=== PATIENT | female | born 1965 | race Two or more races ===

== ENCOUNTER 2017-07-29 22:29 | Inpatient (IN) | payer OTHER ==
[~2017-07-29] VITALS: Ht 167.6 cm; Wt 64.4 kg
--- NOTE | 2017-07-29 22:32 | NUR ---
PT MARIYA FROM HOME TO ER BED 02. PT STATES HAD FELT LIKE SHE IS GOING TO FAINT WHILE TRYING TO GO TO THE BATHROOM AT AROUND 2130. HAD A NASAL POLYP REMOVAL THE DAY BEFORE. 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 GOWNED AND PLACED ON MONITOR. AWAITING MD ZAVALETA.
--- NOTE | 2017-07-29 22:39 | NUR ---
DR MEDEIROS AT BEDSIDE FOR EVAL.
--- NOTE | 2017-07-29 22:45 | NUR ---
DIRECTOR DANCE AT BEDSIDE FOR BLOOD DRAW.
[2017-07-29] MEDS ORDERED: ONDANSETRON HCL/PF 4 MG/2 ML VIAL IV ONE (23:00)
[2017-07-29] MEDS ORDERED: IV NS 0.9% 1,000 ML BAG IV ONE (23:00)
[2017-07-29 23:08] LABS: BASOPHILS % (AUTO) 0.3 % (0.0-2.0); EOSINOPHILS # (AUTO) 0.2 /CMM (0.0-0.7); HEMATOCRIT 23 % (33-45); HEMOGLOBIN 7.7 g/dL (11.5-14.8); LYMPHOCYTES # (AUTO) 0.8 /CMM (0.8-4.8); LYMPHOCYTES % (AUTO) 6.7 % (20.0-44.0); MEAN CORPUSCULAR HEMOGLOBIN 27 PG (26.0-33.0); MEAN CORPUSCULAR HGB CONC 33 g/dl (31.0-36.0); MEAN CORPUSCULAR VOLUME 82 fL (82-100); MONOCYTES # (AUTO) 0.5 /CMM (0.1-1.30); MONOCYTES % (AUTO) 4.5 % (2.0-12.0); NEUTROPHILS # (AUTO) 10.1 /CMM (1.8-8.9); NEUTROPHILS % (AUTO) 86.5 % (43.0-81.0); PLATELET COUNT (AUTO) 170 /CMM (150-450); RDW COEFFICIENT OF VARIATION 13.1 (11.5-15.0); RED BLOOD CELL COUNT(AUTO) 2.81 MIL/uL (4.0-5.2); WHITE BLOOD COUNT (AUTO) 11.7 K/uL (4.3-11.0)
[2017-07-29 23:20] LABS: CALCIUM, SERUM 7.8 mg/dL (8.5-10.1); CARBON DIOXIDE 23 mmol/L (21-32); CHLORIDE 109 mmol/L (98-107); CREATININE 0.7 mg/dL (0.6-1.3); GLUCOSE 98 mg/dL (74-106); POTASSIUM 3.7 mmol/L (3.5-5.1); SODIUM SERUM 143 mmol/L (136-145); UREA NITROGEN, BLOOD 15 mg/dL (7-18)
[2017-07-29 23:26] LABS: ALANINE AMINOTRANSFERASE 18 U/L (12-78); ALBUMIN 3.2 g/dL (3.4-5.0); ALKALINE PHOSPHATASE 45 U/L (46-116); ASPARTATE AMINOTRANSFERASE 10 U/L (15-37); BILIRUBIN,DIRECT 0.1 mg/dL (0.0-0.2); BILIRUBIN,TOTAL 0.2 mg/dL (0.2-1.0); TOTAL PROTEIN, SERUM 5.8 g/dL (6.4-8.2)
[2017-07-29 23:27] LABS: TROPONIN I < 0.017 ng/mL (0.00-0.056)
--- NOTE | 2017-07-30 00:34 | NUR ---
REPORT GIVEN TO KEVYN/RN ON BEHALF OF PRIMARY NURSE FLAVIO.
[2017-07-30 01:00] VITALS: BP 101/48
[2017-07-30] MEDS ORDERED: IV NS 0.9% 1,000 ML IV PRN (01:00)
[2017-07-30] MEDS ORDERED: HYDROCODONE/APAP 5/325MG 1 EACH TABLET PO PRN (01:00)
[2017-07-30] MEDS ORDERED: ACETAMINOPHEN 325 MG TABLET PO PRN (01:00)
[2017-07-30] MEDS ORDERED: MAGNESIUM HYDROXIDE 30 ML UDC PO PRN (01:00)
[2017-07-30] MEDS ORDERED: ONDANSETRON HCL/PF 4 MG/2 ML VIAL IVP PRN (01:00)
[2017-07-30] MEDS ORDERED: ZOLPIDEM TARTRATE 5 MG TABLET PO PRN (01:00)
[2017-07-30] MEDS ORDERED: Z GUARD REMEDY 2 OZ OINT TP PRN (01:00)
--- NOTE | 2017-07-30 01:00 | NUR ---
[facility] MACHINE OPERATORMARKETING SUPPORT SPECIALIST NOTES ADMITTED 52 YO FEMALE PT ALERT, AWAKE, VERBALLY RESPONSIVE,ON ROOM AIR, RESPIRATIONS EVEN, UNLABORED, NO APPARENT DISTRESS NOTED. DENIES ANY PAIN OR DISCOMFORT AT THIS TIME. IV SITE RT HAND INTACT, PATENT. S/P NASAL POLYP REMOVAL ON 07/28/17. PT STATED SHE HAS PACKING AT THE NOSTRIL. CALL LIGHT WITHIN REACH. BED LOCKED IN LOWEST POSITION. ATTENDED ALL NEEDS. WILL CONTINUE TO MONIUTOR ACCORDINGLY.
[2017-07-30 04:00] VITALS: BP 101/45
--- NOTE | 2017-07-30 07:30 | NUR ---
PSYCH TECH CLOSING NOTES PT IN BED, RESTING COMFORTABLY, ON ROOM AIR, RESPIRATIONS EVEN UNLABORED. DENIES ANY PAIN OR DISCOMFORT AT THIS TIME. WILL CONTINUE TO MONITOR ACCORDINGLY.
--- NOTE | 2017-07-30 07:45 | NUR ---
RN MDS OPENING NOTE PATIENT IS ALERT AND ORIENTED x4. NO PAIN AT THIS TIME. NO SOB OR DISTRESS NOTED. CALL LIGHT WITHIN REACH. SAFETY MEASURES IMPLEMENTED. ABLE TO COMMUNICATE NEEDS. IV INTACT AND PATENT NO REDNESS OR SWELLING NOTED, IV FLUIDS RUNNING AT THIS TIME TOLERATING WELL. ON ROOM AIR. WILL CONTINUE TO MONITOR THROUGHOUT SHIFT
[2017-07-30 08:00] VITALS: BP 85/42
[2017-07-30] MEDS ORDERED: POTASSIUM CHLORIDE 20 MEQ TAB.PRT.SR PO SCH (08:00)
[2017-07-30] MEDS: IV D5/ 0.9% NACL 1,000 ML IV PRN ×2 (08:15→18:36)
[2017-07-30] MEDS ORDERED: ALBU8.5H8 IH (08:40)
[2017-07-30] MEDS ORDERED: SULF1TAB3 PO (08:40)
[2017-07-30] MEDS ORDERED: CLIN150C15 PO (08:40)
[2017-07-30] MEDS ORDERED: ALBU2.5V38 IH (08:40)
[2017-07-30] MEDS ORDERED: MONT10TA22 PO (08:40)
[2017-07-30] MEDS ORDERED: FLUT1BLS IH (08:40)
--- NOTE | 2017-07-30 09:00 | NUR ---
MS RN NOTE INFORMED MD ABOUT PATIENT'S HGB: 7.1 NO NEW ORDERS FOR BLOOD AT THIS TIME. ORDER TO COLLECT OB STOOL. WILL MONITOR FOR BLEEDING THROUGHOUT SHIFT
[2017-07-30 09:17] LABS: BASOPHILS % (AUTO) 0.4 % (0.0-2.0); EOSINOPHILS # (AUTO) 0.6 /CMM (0.0-0.7); EOSINOPHILS % (AUTO) 6.2 % (0.0-6.0); HEMATOCRIT 21 % (33-45); HEMOGLOBIN 7.1 g/dL (11.5-14.8); LYMPHOCYTES # (AUTO) 1.4 /CMM (0.8-4.8); LYMPHOCYTES % (AUTO) 13.4 % (20.0-44.0); MEAN CORPUSCULAR HEMOGLOBIN 28 PG (26.0-33.0); MEAN CORPUSCULAR HGB CONC 34 g/dl (31.0-36.0); MEAN CORPUSCULAR VOLUME 82 fL (82-100); MONOCYTES # (AUTO) 0.5 /CMM (0.1-1.30); MONOCYTES % (AUTO) 4.5 % (2.0-12.0); NEUTROPHILS # (AUTO) 7.7 /CMM (1.8-8.9); NEUTROPHILS % (AUTO) 75.5 % (43.0-81.0); PLATELET COUNT (AUTO) 167 /CMM (150-450); RDW COEFFICIENT OF VARIATION 13.2 (11.5-15.0); RED BLOOD CELL COUNT(AUTO) 2.58 MIL/uL (4.0-5.2); WHITE BLOOD COUNT (AUTO) 10.2 K/uL (4.3-11.0)
[2017-07-30 09:32] LABS: CALCIUM, SERUM 7.8 mg/dL (8.5-10.1); CREATININE 0.6 mg/dL (0.6-1.3); POTASSIUM 3.7 mmol/L (3.5-5.1)
[2017-07-30 09:37] LABS: MAGNESIUM 1.7 mg/dL (1.8-2.4); PHOSPHORUS 2.7 mg/dL (2.5-4.9)
[2017-07-30 09:50] LABS: THYROID STIMULATING HORMONE 0.916 uIU/mL (0.358-3.74)
[2017-07-30] MEDS: Magnesium 1GM/D5W 100ML PREMIX 100 ML IV SCH ×2 (11:40→14:24)
[2017-07-30] MEDS: SOD FERRIC GLUC 125 MG in IV NS 0.9% 100 ML IV SCH (14:23)
[2017-07-30 16:00] VITALS: BP 100/55
--- NOTE | 2017-07-30 18:47 | NUR ---
MS RN CLOSING NOTE PATIENT RESTING COMFORTABLY AT THIS TIME. NO PAIN AT THIS TIME. NO SOB OR DISTRESS NOTED. CALL LIGHT WITHIN REACH AT ALL TIMES. SAFETY MEASURES IMPLEMENTED. ABLE TO COMMUNICATE NEEDS. ALL DUE MEDICATIONS GIVEN ORDERED. ALL NURSING CARE NEEDS ATTENDED TO. IV INTACT AND PATENT NO REDNESS OR SWELLING NOTED. STOOL SAMPLE TO BE COLLECTED FOR OB STOOL. WILL ENDORSE TO DIRECTOR DRUG NURSE
[2017-07-30 20:00] VITALS: BP 98/54
--- NOTE | 2017-07-30 22:27 | NUR ---
A/A /O times 4 pleasant and coopertive ,no distress noted or voiced
--- NOTE | 2017-07-30 22:45 | NUR ---
MS PRAMOD NOTES PT HAS BEEN REASSIGNED, RECEIVED REPORT FROM PRAMOD PRIETO FOR CONTINUITY OF CARE. A/O X4, AWAKE AND RESPONSIVE. REMAINS AFEBRILE. RESPIRATIONS ARE EVEN AND UNLABORED, NOT IN ANY ACUTE DISTRESS NOTED. DENIES ANY SOB, CHEST PAIN, N/V. IV TO R HAND INTACT, NO INFILTRATION NOTED. DRESSING KEPT CLEAN AND DRY. PT IS AMBULATORY WITH NO DIFFICULTIES AND ABLE TO REPOSITION SELF IN BED. SAFETY MEASURES ARE IN PLACE. BED IS IN ITS LOW AND LOCKED POSITION. WILL ENDORSE TO NEXT SHIFT FOR CONTINUITY OF CARE.
--- NOTE | 2017-07-31 06:17 | NUR ---
MS RN CLOSING NOTES ALL NEEDS MET AND RENDERED. AWAKE, ALERT AND RESPONSIVE. REMAINS AFEBRILE. RESPIRATIONS ARE EVEN AND UNLABORED, NOT IN ANY ACUTE DISTRESS NOTED. DENIES ANY PAIN AT THIS TIME. IV TO RIGHT HAND INTACT, DRESSING KEPT CLEAN AND DRY. NO INFILTRATION NOTED. SAFETY MEASURES ARE IN PLACE. INSTRUCTED PT TO USE CALL LIGHT WHEN ASSISTANCE IS NEEDED, CALL LIGHT IS LEFT WITHIN REACH. WILL ENDORSE TO NEXT SHIFT FOR CONTINUITY OF CARE.
[2017-07-31 08:00] VITALS: BP 98/56
[2017-07-31 08:07] LABS: BASOPHILS % (AUTO) 0.4 % (0.0-2.0); EOSINOPHILS # (AUTO) 0.4 /CMM (0.0-0.7); HEMATOCRIT 22 % (33-45); HEMOGLOBIN 7.3 g/dL (11.5-14.8); LYMPHOCYTES # (AUTO) 1.8 /CMM (0.8-4.8); MEAN CORPUSCULAR HEMOGLOBIN 27 PG (26.0-33.0); MEAN CORPUSCULAR HGB CONC 33 g/dl (31.0-36.0); MEAN CORPUSCULAR VOLUME 83 fL (82-100); MONOCYTES # (AUTO) 0.6 /CMM (0.1-1.30); MONOCYTES % (AUTO) 10.7 % (2.0-12.0); NEUTROPHILS % (AUTO) 51.9 % (43.0-81.0); PLATELET COUNT (AUTO) 153 /CMM (150-450); RDW COEFFICIENT OF VARIATION 13.4 (11.5-15.0); RED BLOOD CELL COUNT(AUTO) 2.65 MIL/uL (4.0-5.2); WHITE BLOOD COUNT (AUTO) 5.9 K/uL (4.3-11.0)
[2017-07-31 08:26] LABS: ALBUMIN 2.8 g/dL (3.4-5.0); BILIRUBIN,TOTAL 0.1 mg/dL (0.2-1.0); CALCIUM, SERUM 7.7 mg/dL (8.5-10.1); CREATININE 0.5 mg/dL (0.6-1.3); MAGNESIUM 1.8 mg/dL (1.8-2.4); POTASSIUM 3.9 mmol/L (3.5-5.1); TOTAL PROTEIN, SERUM 5.6 g/dL (6.4-8.2)
[2017-07-31 08:50] VITALS: BP 93/51
[2017-07-31 08:53] VITALS: BP 100/55
[2017-07-31 08:56] VITALS: BP 95/57
[2017-07-31] MEDS ORDERED: ERGOCALCIFEROL (VITAMIN D 2) 50,000 UNIT CAPSULE PO SCH (09:00)
--- NOTE | 2017-07-31 10:00 | NUR ---
DR. DIANA IN DISCUSSED POSSIBLE DC TODAY WITH PT.
[2017-07-31] MEDS: SOD FERRIC GLUC 125 MG in IV NS 0.9% 100 ML IV SCH (14:22)
[2017-07-31 16:00] VITALS: BP 96/53
--- NOTE | 2017-07-31 16:50 | NUR ---
SPOUSE HERE AND DR. DIANA CALLED AND DC ORDER GIVEN.GIVEN ALL INSTRUCTIONS,BELONGING SHEET SIGNED,GIVEN RX.INSTRUCTED ON PRECAUTIONS WITH ANEMIA AND S/S TO REPORT TO MD.HEP LOCK OUT. MADE AWARE TO FOLLOW UP WITH ENT MD AND BRANDS EDITOR.ESCORTED TO LOBBY VIA W/C ACCOMPANIED BY SCHEDULING AGENT AND SPOUSE.
== END 2017-07-31 16:45 | disposition home or self-care (01) | DRG 812 ==
LOC: ER 22:31 → TELE 07-30 00:45 → MED 07-30 08:45
PROVIDERS: ADMIT Nurse Practitioner Acute Care; ATTEND Nurse Practitioner Acute Care
DX: D62 Acute posthemorrhagic anemia (principal); I95.9 Hypotension, unspecified; E83.42 Hypomagnesemia; J45.909 Unspecified asthma, uncomplicated; Z88.8 Allergy status to other drugs, medicaments and biological substances; Z98.890 Other specified postprocedural states; J33.9 Nasal polyp, unspecified
CPT/HCPCS: 36415; 71045-TC; 80048-TC; 80053-TC; 80061-TC; 80076-TC; 82306; 82728-TC; 82962-TC; 83540-TC; 83735-TC; 84100-TC; 84439-TC; 84443-TC; 84484-TC; 85025-TC; 86850-TC; 87081-TC; 93307-TC; A4606; J2916; J3475; J3490; J7030; J7042; J7050; J7070; Z7610